=== PATIENT | male | born 1970 | race Caucasian/White ===

== ENCOUNTER 2019-05-26 13:21 | Emergency (ER) | payer SELFPAY ==
[~2019-05-26] VITALS: Ht 167.6 cm; Wt 91.0 kg
[2019-05-26] MEDS ORDERED: HALOPERIDOL LACTATE 5MG/ML VIAL IM STA (14:19)
[2019-05-26] MEDS ORDERED: LORAZEPAM 2MG/ML CPJ IM STA (14:19)
[2019-05-26] MEDS ORDERED: SODIUM CHLORIDE 0.9% 1,000 ML IV ONE (14:19)
[2019-05-26] MEDS ORDERED: HALOPERIDOL LACTATE 5MG/ML VIAL IM ONE (14:45)
[2019-05-26] MEDS ORDERED: LORAZEPAM 2MG/ML CPJ IM ONE (15:00)
[2019-05-26 15:29] LABS: BASOPHILS % 0.7 % (0.0-2.0); HEMATOCRIT. 42.2 % (42.0-52.0); HEMOGLOBIN. 14.3 g/dL (14.0-18.0); LYMPHOCYTES % 16.2 % (20.0-50.0); MEAN CORPUSCULAR VOLUME 100.1 fL (80.0-94.0); MEAN PLATELET VOLUME 9.1 fl (7.4-10.4); NEUTROPHILS % 75.1 % (40.0-76.0); PLATELET 271 x1000/uL (130-400); RED BLOOD CELL COUNT 4.21 mill/uL (4.7-6.1); RED CELL DISTRIBUTION WIDTH 14.7 % (11.6-14.6)
[2019-05-26 15:30] LABS: CHLORIDE 110 mEq/L (98-107)
[2019-05-26 15:35] LABS: ETHANOL BLOOD 297 mg/dL
[2019-05-26 18:15] VITALS: BP 120/73
== END 2019-05-26 18:20 | disposition home or self-care (01) ==
LOC: ER 13:21
DX: T51.91XA Toxic effect of unspecified alcohol, accidental (unintentional), initial encounter (principal); R45.1 Restlessness and agitation; F32.9 Major depressive disorder, single episode, unspecified; I10 Essential (primary) hypertension; Y92.89 Other specified places as the place of occurrence of the external cause
CPT/HCPCS: 36415; 80053; 80307; 80320; 80329; 85025; 96372; 99284; J1630; J2060; J7030; Z7610; G0480

== ENCOUNTER 2019-05-28 17:30 | Emergency (ER) | payer OTHER ==
[~2019-05-28] VITALS: Ht 172.7 cm; Wt 100.0 kg
[2019-05-28] MEDS ORDERED: HALOPERIDOL LACTATE 5MG/ML VIAL IM STA (20:15)
[2019-05-28] MEDS ORDERED: DIPHENHYDRAMINE 50MG/ML VIAL IM ONE (20:15)
[2019-05-28] MEDS ORDERED: LORAZEPAM 2MG/ML CPJ IM ONE (20:15)
[2019-05-28 20:29] LABS: BASOPHILS % 0.5 % (0.0-2.0); CHLORIDE 112 mEq/L (98-107); HEMATOCRIT. 40.8 % (42.0-52.0); LYMPHOCYTES % 20.9 % (20.0-50.0); MEAN CORPUSCULAR HEMOGLOBIN 34.1 pg (28.0-32.0); MEAN CORPUSCULAR VOLUME 99.8 fL (80.0-94.0); MEAN PLATELET VOLUME 9.7 fl (7.4-10.4); MONOCYTES % 4.8 % (2.0-8.0); NEUTROPHILS % 73.8 % (40.0-76.0); PLATELET 269 x1000/uL (130-400); RED BLOOD CELL COUNT 4.09 mill/uL (4.7-6.1); RED CELL DISTRIBUTION WIDTH 14.5 % (11.6-14.6)
[2019-05-28 20:32] LABS: ETHANOL BLOOD 290 mg/dL
[2019-05-28 22:27] LABS: CLARITY URINE CLEAR (CLEAR); COLOR URINE YELLOW (YELLOW); KETONES URINE 1+ (NEGATIVE); LEUKOCYTE ESTERASE URINE NEGATIVE (NEGATIVE); NITRITE URINE NEGATIVE (NEGATIVE); OCCULT BLOOD URINE NEGATIVE (NEGATIVE); PROTEIN URINE 1+ (NEGATIVE); SPECIFIC GRAVITY URINE 1.022 (1.005-1.030); UROBILINOGEN URINE 0.2 E.U./dL (0.2-1.0)
[2019-05-28 22:48] LABS: *AMPHETAMINES SCREEN URINE NEGATIVE (NEGATIVE); *BARBITURATES SCREEN URINE NEGATIVE (NEGATIVE); *BENZODIAZEPINES SCREEN URINE NEGATIVE (NEGATIVE); *COCAINE SCREEN URINE NEGATIVE (NEGATIVE); METHADONE URINE SCREEN NEGATIVE (NEGATIVE); OPIATES URINE SCREEN NEGATIVE (NEGATIVE)
[2019-05-28 22:49] LABS: CANNABINOID URINE SCREEN NEGATIVE (NEGATIVE); PHENCYCLIDINE URINE SCREEN NEGATIVE (NEGATIVE)
[2019-05-29 00:20] VITALS: BP 132/74
== END 2019-05-29 00:31 | disposition home or self-care (01) ==
LOC: ER 21:24
DX: F10.229 Alcohol dependence with intoxication, unspecified (principal); R45.6 Violent behavior; R45.1 Restlessness and agitation; I10 Essential (primary) hypertension; F32.9 Major depressive disorder, single episode, unspecified; Y90.8 Blood alcohol level of 240 mg/100 ml or more
CPT/HCPCS: 36415; 80053; 80305; 80320; 81003; 85025; 96372; 99283; J1200; J1630; J2060; Z7610; G0480

== ENCOUNTER 2021-08-12 11:38 | Emergency (ER) | payer OTHER ==
[~2021-08-12] VITALS: Ht 165.1 cm; Wt 91.0 kg
[2021-08-12 11:41] VITALS: BP 128/78
== END 2021-08-12 15:10 | disposition left against medical advice (07) ==
LOC: ER 12:13
DX: F10.129 Alcohol abuse with intoxication, unspecified (principal); Y90.9 Presence of alcohol in blood, level not specified; F32.9 Major depressive disorder, single episode, unspecified; I10 Essential (primary) hypertension
CPT/HCPCS: 99283